=== PATIENT | male | born 1955 | race Caucasian/White ===

== ENCOUNTER 2019-10-31 06:57 | Day surgery (SDC) | payer OTHER ==
[2019-10-31] MEDS ORDERED: Ringers Lactate 1,000 ML IV ONE (07:23)
[2019-10-31] MEDS ORDERED: LIDOCAINE 1% MPF 5 ML VIAL ONE (09:15)
[2019-10-31] MEDS ORDERED: propofoL 200 MG/20 ML VIAL IV ONE ×2 (09:15)
--- NOTE | 2019-10-31 09:50 | ENDO RPT ---
[address], [address] COLONOSCOPY PROCEDURE REPORT EXAM DATE: 10/31/2019 PATIENT NAME: Eleuterio Ramos MR #: [id number] BIRTHDATE: 1955 ATTENDING: Omari Richards Dr STATUS: outpatient CODE CLERK: Angely Morel INDICATIONS: The patient is a 64 yr old Male here for a colonoscopy due to personal history of colon polyps PROCEDURE PERFORMED: Colonoscopy with snare polypectomy MEDICATIONS: Per Anesthesia. ESTIMATED BLOOD LOSS: None CONSENT: The patient understands the risks and benefits of the procedure and understands that these risks include, but are not limited to: sedation, allergic reaction, infection, perforation and/or bleeding. Alternative means of evaluation and treatment include, among others: physical exam, x-rays, and/or surgical intervention. The patient elects to proceed with this endoscopic procedure. DESCRIPTION OF PROCEDURE: During intra-op preparation period all mechanical medical equipment was checked for proper function. Hand hygiene and appropriate measures for infection prevention was taken. Procedure, possible complications, alternatives including, but not limited to possibility of bleeding, perforation, tear, infection, sepsis, need for surgery, need for blood transfusion, were explained to the patient. After the risks, benefits and alternatives of the procedure were thoroughly explained, Informed consent was verified, confirmed and timeout was successfully executed by the treatment team. The patient was placed in the left lateral position. A digital rectal exam was performed and revealed external hemorrhoids. After appropriate level of anesthesia, the scope was passed. The [id number] ([id number]) endoscope was introduced through the anus and advanced to the terminal ileum which was intubated for a short distance. The quality of the prep was good. The instrument was then slowly withdrawn as the colon was fully examined. Scope withdrawal time was 7 minutes. COLON FINDINGS: A smooth sessile polyp measuring 8 mm in size was found in the ascending colon. A polypectomy was performed with a cold snare. A smooth sessile polyp measuring 7 mm in size was found in the proximal transverse colon. A polypectomy was performed with a cold snare. Small internal and external hemorrhoids were found. Retroflexed views revealed small hemorrhoids. The scope was then completely withdrawn from the patient and the procedure terminated. ADVERSE EVENTS: There were no complications, but poor optics from [place] colonoscope. IMPRESSIONS: 1. 8 mm sessile polyp in the ascending colon; polypectomy was performed with a cold snare 2. 7 mm sessile polyp in the proximal transverse colon; polypectomy was performed with a cold snare 3. Small internal and external hemorrhoids 4. Intubation to terminal ileum 5. Personal history of colon polyps RECOMMENDATIONS: 1. await biopsy results 2. avoid NSAIDS for 2 weeks 3. fiber rich diet RECALL: Return in 3 year(s) for Colonoscopy. Omari Richards Dr eSigned: Omari Richards Dr 10/31/2019 9:49 AM cc: Clarissa Banks CPT CODES: ICD9 CODES: PATIENT NAME: Eleuterio Ramos MR#: [id number]
[2019-10-31 10:13] VITALS: BP 131/74; TEMP 97.7; O2SAT 96
== END 2019-10-31 10:15 | disposition home or self-care (01) ==
LOC: OR 06:57
PROVIDERS: ATTEND Internal Medicine Gastroenterology
PROC: 0DBL8ZX Excision of Transverse Colon, Via Natural or Artificial Opening Endoscopic, Diagnostic (ICD-10-PCS; 2019-10-31)
PROC: 0DBK8ZX Excision of Ascending Colon, Via Natural or Artificial Opening Endoscopic, Diagnostic (ICD-10-PCS; principal; 2019-10-31 08:45)
DX: D12.2 Benign neoplasm of ascending colon (principal); D12.3 Benign neoplasm of transverse colon; K64.8 Other hemorrhoids; K64.4 Residual hemorrhoidal skin tags; I10 Essential (primary) hypertension; Z86.010 Personal history of colon polyps; E66.01 Morbid (severe) obesity due to excess calories; Z68.43 Body mass index [BMI] 50.0-59.9, adult
CPT/HCPCS: 88305; 45385; J2704 ×2; J7120